=== PATIENT | male | born 1980 | race Caucasian/White ===

== ENCOUNTER 2016-12-27 23:47 | Emergency (ER) | payer MEDICAID, OTHER ==
[2016-12-28] MEDS ORDERED: Naproxen 550 mg Tab PO STA (00:25)
[2016-12-28] MEDS ORDERED: Naproxen 550 mg Tab PO ONE (00:28)
--- NOTE | 2016-12-28 01:01 | C.PDOC ---
History Of Present Illness A 36 y/o male c/o back pain for 3 days. Pt notes that he lifted luggages and it exacerbated the pain. Pt states that he has chronic back pain. Pt notes pain is worse with movement but denies trauma, abdominal pain, nausea, vomiting, diarrhea, extremity weakness or numbness, fever, chills, incontinence, change in sensation, or any other complaints. Pt took no meds for pain. Time Seen by Provider: 12/28/16 00:06 Chief Complaint (Nursing): Back Pain History Per: Patient History/Exam Limitations: no limitations Onset/Duration Of Symptoms: Days Current Symptoms Are (Timing): Still Present Severity: Mild Associated Symptoms: denies: Incontinence, New Weakness, New Numbness Exacerbating Factor(s): Movement Recent travel outside of the [place]: No Additional History Per: Patient Past Medical History Reviewed: Historical Data, Nursing Documentation, Vital Signs Vital Signs: Last Vital Signs Temp 97.8 F 12/28/16 01:30 Pulse 78 12/28/16 01:30 Resp 20 12/28/16 01:30 BP 145/78 12/28/16 01:30 Pulse Ox 96 12/28/16 04:00 - Medical History PMH: Back Problems Family History: States: Unknown Family Hx - Social History Hx Alcohol Use: No Hx Substance Use: No - Immunization History Hx Tetanus Toxoid Vaccination: No Hx Influenza Vaccination: No Hx Pneumococcal Vaccination: No Review Of Systems Except As Marked, All Systems Reviewed And Found Negative. Constitutional: Negative for: Fever, Chills, Other (Trauma) Gastrointestinal: Negative for: Nausea, Vomiting, Abdominal Pain, Diarrhea Genitourinary: Negative for: Incontinence Musculoskeletal: Positive for: Back Pain Neurological: Negative for: Weakness, Numbness, Other (Change in sensation) Physical Exam - Physical Exam Appears: Well, Non-toxic, No Acute Distress Skin: Normal Color, Warm, Dry Head: Atraumatic, Normacephalic Eye(s): bilateral: Normal Inspection, EOMI Nose: Normal Oral Mucosa: Moist Chest: Symmetrical Cardiovascular: Rhythm Regular, No Murmur Respiratory: Normal Breath Sounds, No Accessory Muscle Use, Other (Speaking in full sentences) Gastrointestinal/Abdominal: Normal Exam, Soft, No Tenderness Back: No CVA Tenderness, No Vertebral Tenderness, Paraspinal Tenderness ( Paralumbar tenderness) Extremity: Bilateral: Atraumatic Pulses: Left Dorsalis Pedis: Normal, Right Dorsalis Pedis: Normal Neurological/Psych: Oriented x3, Normal Speech, Normal Cognition, Normal Motor, Normal Sensation, Other (NO focal deficit) Gait: Steady ED Course And Treatment O2 Sat by Pulse Oximetry: 96 (RA) Pulse Ox Interpretation: Normal - Other Rad l/s XR X-Ray: Interpreted by Me, Viewed By Me Interpretation: No fx or dislocation Progress Note: Impression: A 36 y/o male c/o back pain for 3 days. Plans: Anaprox, XRAY LS, reassessment. On reassessment, patient is resting comfortably , with improvement of back pain. Patient remains afebrile, with no bony tenderness, extremity numbness or weakness, or abdominal pain. Patient is ambulatory in the emergency department with no signs of discomfort. Patient was advised to follow up with physician/clinic in 1-2 days. Disposition - Disposition Disposition: HOME/ ROUTINE Disposition Time: 00:59 Condition: STABLE Additional Instructions: Rest and ice the area. Follow up with PMD in 1-2 days. Return to ER if symptoms persist or worsen. Prescriptions: Naproxen [Naprosyn] 1 tab PO BID PRN #20 tab PRN Reason: Pain Instructions: Acute Low Back Pain (ED) - Clinical Impression Clinical Impression: Low back strain - Scribe Statement The provider has reviewed the documentation as recorded by the Scriblance [email or web address] All medical record entries made by the Brookiblance were at my direction and personally dictated by me. I have reviewed the chart and agree that the record accurately reflects my personal performance of the history, physical exam, medical decision making, and the department course for this patient. I have also personally directed, reviewed, and agree with the discharge instructions and disposition.
[2016-12-28 01:31] VITALS: BP 145/78; PULSE 78; RESP 20; TEMP 97.8
[2016-12-28 03:57] VITALS: O2SAT 96
--- NOTE | 2016-12-28 09:30 | RAD ---
PROCEDURE: Lumbar spine dated 12/28/2016 HISTORY: pain COMPARISON: No prior. FINDINGS: BONES: No acute compression fracture nor retropulsed fragments. Vertebral bodies exhibit normal stature. Mild straightening of the normal lumbar lordosis with very slight dextroscoliosis and or side bending to the left. . Vertebral bodies otherwise exhibit normal alignment. Facets normally aligned. DISC SPACES: Mild disc space narrowing seen at the L5 S1 level. Facet joints are slightly prominent at the L5-S1 and to a lesser degree L4-L5 levels. OTHER FINDINGS: None. IMPRESSION: No acute fractures. Mild degenerative spondylosis L5-S1 level.
== END 2016-12-28 01:31 | disposition home or self-care (01) ==
LOC: C.ER 23:47
DX: S39.012A Strain of muscle, fascia and tendon of lower back, initial encounter (principal); X50.0XXA Overexertion from strenuous movement or load, initial encounter; Y93.89 Activity, other specified; Y92.89 Other specified places as the place of occurrence of the external cause

== ENCOUNTER 2018-07-30 11:11 | Emergency (ER) | payer MEDICAID ==
--- NOTE | 2018-07-30 13:26 | C.PDOC ---
History Of Present Illness Pt c/o low back pain after going on a long car ride. Denies recent injury. Time Seen by Provider: 07/30/18 12:16 Chief Complaint (Nursing): Back Pain History Per: Patient Onset/Duration Of Symptoms: Days (2) Current Symptoms Are (Timing): Still Present Quality Of Discomfort: "Pain" Severity: Moderate Previous Symptoms: Back Pain Associated Symptoms: None Exacerbating Factor(s): Movement Additional History Per: Prior Records Past Medical History Reviewed: Historical Data, Nursing Documentation, Vital Signs Vital Signs: Last Vital Signs Temp 98.2 F 07/30/18 11:26 Pulse 78 07/30/18 11:26 Resp 18 07/30/18 11:26 BP 114/72 07/30/18 11:26 Pulse Ox 97 07/30/18 11:26 - Medical History PMH: Back Problems Family History: States: Unknown Family Hx - Social History Hx Alcohol Use: No Hx Substance Use: No - Immunization History Hx Tetanus Toxoid Vaccination: No Hx Influenza Vaccination: No Hx Pneumococcal Vaccination: No Review Of Systems Except As Marked, All Systems Reviewed And Found Negative. Constitutional: Positive for: Fever. Negative for: Weakness Cardiovascular: Negative for: Chest Pain Respiratory: Negative for: Shortness of Breath Gastrointestinal: Negative for: Abdominal Pain Genitourinary: Negative for: Dysuria, Incontinence, Hematuria Musculoskeletal: Positive for: Back Pain. Negative for: Neck Pain Skin: Negative for: Rash Neurological: Negative for: Weakness, Numbness Physical Exam - Physical Exam Appears: Non-toxic, No Acute Distress Skin: Normal Color, Warm, Dry, No Rash Head: Atraumatic, Normacephalic Eye(s): bilateral: PERRL, EOMI Neck: Normal ROM, Supple Cardiovascular: Rhythm Regular Respiratory: Normal Breath Sounds, No Accessory Muscle Use Gastrointestinal/Abdominal: Soft, No Tenderness Back: No CVA Tenderness Extremity: Normal ROM, No Pedal Edema, No Calf Tenderness Extremity: Bilateral: Normal Color And Temperature Neurological/Psych: Oriented x3, Normal Motor, Normal Sensation ED Course And Treatment O2 Sat by Pulse Oximetry: 97 Pulse Ox Interpretation: Normal Reassessment Condition: Improved Disposition Counseled Patient/Family Regarding: Diagnosis, Need For Followup, Rx Given - Disposition Disposition: HOME/ ROUTINE Disposition Time: 13:27 Condition: STABLE Additional Instructions: Follow up with your doctor for further evaluation and treatment. Return to the ER if you develop weakness, numbness, abdominal pain, trouble urinating, worsening of symptoms or have any other concerns. Prescriptions: Cyclobenzaprine [Cyclobenzaprine HCl] 10 mg PO TID PRN #15 tab PRN Reason: Muscle Spasm Naproxen [Naprosyn] 1 tab PO BID PRN #25 tab PRN Reason: Pain Instructions: Low Back Pain (DC) - Clinical Impression Clinical Impression: Low back pain
[2018-07-30 13:36] VITALS: BP 107/65; PULSE 74; RESP 20; TEMP 98.1; O2SAT 96
== END 2018-07-30 13:40 | disposition home or self-care (01) ==
LOC: C.ER 11:11
DX: M54.5 Low back pain (principal)
CPT/HCPCS: 96372; 99283; J1885